=== PATIENT | male | born 1950 | race Caucasian/White ===

== ENCOUNTER → 2016-06-15 | Outpatient (CLI) | payer OTHER ==
[~2016-06-15] MED LIST: ASPI81TA28 PO; ATOR-24 PO; ATRIN INH; CYCL10TA6 PO; FEXO1TAB45 PO; FLUT50SP14; HYDR2TAB2 PO; LEVO-366 PO; ULT/50 PO; XPNIN INH
--- NOTE | 2016-06-15 10:52 | DIAGNOSTIC IMAGING REPORT ---
ABDOMINAL AORTIC ULTRASOUND CLINICAL HISTORY: Follow-up of abdominal aortic aneurysm. COMPARISON STUDY: Outside hospital CT 06/20/2015. FINDINGS: Proximal abdominal aorta measures 2.6 cm, mid aorta 2.5 cm, and the distal aorta measures 4.3 x 4.4 cm. This is not definitely changed in size. Bilateral common iliac arteries measure 1 cm. IMPRESSION: No significant change in the 4.4 x 4.3 cm distal abdominal aortic aneurysm Electronically signed by: Oliver De Oliveira M.D. 06/15/2016 10:51 AM Dictated Date/Time: 06/15/2016 10:49 AM
== END | disposition home or self-care (01) ==
LOC: C.ULTR 10:15
PROVIDERS: ATTEND Surgery
DX: I71.4 Abdominal aortic aneurysm, without rupture (principal)

== ENCOUNTER → 2016-08-16 | Outpatient (CLI) | payer OTHER | END | disposition home or self-care (01) | LOC: C.LABPBG 11:02 | PROVIDERS: ATTEND Family Medicine | DX: B35.1 Tinea unguium (principal); E78.00 Pure hypercholesterolemia, unspecified ==

== ENCOUNTER → 2016-12-13 | Outpatient (CLI) | payer OTHER ==
[2016-12-13 17:18] LABS: BASO % 0.2 %; BASO ABS # 0.02 K/uL (0-0.2); COMPLETE YES; EOS % 0.9 %; HEMATOCRIT 49.2 % (42-52); IG% 0.4 %; LYMPH % 36.3 %; LYMPH ABS # 3.51 K/uL (1.2-3.4); MEAN CELL VOLUME 95.7 fL (80-100); MEAN CORPUSCULAR HEMOGLOBIN 32.1 pg (25-34); MEAN CORPUSCULAR HGB CONC 33.5 g/dl (32-36); MEAN PLATELET VOLUME 10.5 fL (7.4-10.4); MONO % 9.3 %; NEUT % 52.9 %; PLATELET COUNT 222 K/uL (130-400); RED BLOOD COUNT 5.14 M/uL (4.7-6.1); WHITE BLOOD COUNT 9.68 K/uL (4.8-10.8)
== END | disposition home or self-care (01) ==
LOC: C.LABPBG 12:16
PROVIDERS: ATTEND Family Medicine
DX: T14.8XXA Other injury of unspecified body region, initial encounter (principal); W57.XXXA Bitten or stung by nonvenomous insect and other nonvenomous arthropods, initial encounter

== ENCOUNTER → 2017-05-02 | Outpatient (CLI) | payer OTHER | END | disposition home or self-care (01) | LOC: C.LABPBG 09:33 | PROVIDERS: ATTEND Family Medicine | DX: E78.00 Pure hypercholesterolemia, unspecified (principal) ==

== ENCOUNTER → 2017-06-20 | Outpatient (CLI) | payer OTHER ==
--- NOTE | 2017-06-20 11:45 | DIAGNOSTIC IMAGING REPORT ---
AORTIC ULTRASOUND CLINICAL HISTORY: I71.4 Aneurysm of abdominal aorta, follow-up study. COMPARISON STUDY: June 15, 2016 FINDINGS: There is an infrarenal abdominal aortic aneurysm. This measures 5 cm in maximal diameter. This producing measured 4.4 cm. IMPRESSION: Enlarging infrarenal abdominal aortic aneurysm, currently measuring 5 cm in maximal diameter. Electronically signed by: Trav Lauren M.D. 06/20/2017 11:43 AM Dictated Date/Time: 06/20/2017 11:42 AM
== END | disposition home or self-care (01) ==
LOC: C.ULTR 10:54
PROVIDERS: ATTEND Surgery
DX: I71.4 Abdominal aortic aneurysm, without rupture (principal)